=== PATIENT | female | born 1975 | race African-American/Black ===

== ENCOUNTER 2020-08-09 14:31 | Emergency (ER) | payer OTHER ==
[~2020-08-09] VITALS: Ht 165.1 cm; Wt 52.2 kg
[2020-08-09] MEDS ORDERED: DILTIAZEM ER60 M1 PO (15:27)
[2020-08-09] MEDS ORDERED: ACETAMINOPHN-12.5 ML PO (15:28)
[2020-08-09] MEDS ORDERED: KEPPRA XR500 MG PO (15:28)
[2020-08-09 15:51] LABS: ABSOLUTE NEUTROPHILS 4.1 thou/uL (1.4-8.2); BASOPHILS 1.5 % (0.0-2.0); LYMPHOCYTES 21.1 % (24.0-44.0); MCH 27.5 pg (26.0-34.0); MCHC 32.3 g/dL (28.0-37.0); MCV 85.4 fL (80.0-100.0); MONOCYTES 6.5 % (1.0-8.0); PLATELET COUNT 449 thou/uL (150-400); POLYS 66.9 % (36.0-66.0); RBC 3.63 mil/uL (4.20-5.00); RDW 15.9 % (10.5-14.5); WBC 6.2 thou/uL (4.0-11.0)
[2020-08-09 15:54] LABS: CALCIUM 8.8 mg/dL (8.5-10.1); CREATININE 0.7 mg/dL (0.6-1.0); POTASSIUM 3.6 mmol/L (3.5-5.1)
[2020-08-09 16:00] LABS: ALBUMIN 3.7 g/dL (3.4-5.0); TOTAL BILIRUBIN 0.5 mg/dL (0.2-1.0); TOTAL PROTEIN 7.9 g/dL (6.4-8.2)
[2020-08-09 21:16] VITALS: BP 118/73
== END 2020-08-09 21:25 | disposition short-term general hospital (02) ==
LOC: ER 14:31
PROVIDERS: Emergency Medicine
DX: T81.49XA Infection following a procedure, other surgical site, initial encounter (principal); Z79.899 Other long term (current) drug therapy